=== PATIENT | female | born 1985 | race Asian ===

== ENCOUNTER 2019-03-15 03:11 | Inpatient (IN) | payer OTHER ==
[~2019-03-15] VITALS: Ht 157.5 cm; Wt 67.1 kg
[2019-03-15 03:18] VITALS: Ht 157.5 cm; Wt 67.1 kg
--- NOTE | 2019-03-15 03:32 | NUR ---
PT PRESENTED TO ED FOR INTERMITTENT "MY HEART BEATING REALLY FAST", INTERMITTENT DIZZINESS, INTERMITTENT SHAKINESS, AND INTERMITTENT ANXIETY X 4 DAYS. 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 PT STATES THEY HAS A 4 DAYS AGO AND RECIEVED 2 UNITS OF BLOOD. PER PT SO "IT WAS LOW BEFORE SHE WENT IN AND WHEN SHE BLEED DURING IT MADE IT WORSE". PT STATES VAGINAL BLEEDING WITH "CLOTS" SINCE AND STATES SHE GOES THROUGH APPROX "4" PADS A DAY. WOUND APPEARS CLOSED WITH STERISTRIPS IN PLACE , PT DENIES DRAINAGE FROM AREA. PT APPEARS PAEL BUT SKIN WARM TO TOUCH. PT A&0X4, SPEAKING FULL CLEAR SENTENCES, BREATHING EVEN AND UNLABORED. LUNGS CLEAR TO ASCULTATION. SO AT BEDSIDE. PT DENIES CP OR SOB. WILL CONTINUE TO MONITOR.
--- NOTE | 2019-03-15 03:55 | NUR ---
MSE COMPLETED BY MD GREENFIELD
--- NOTE | 2019-03-15 03:55 | NUR ---
IV FLUIDS RUNNING AT ORDERED RATE.
[2019-03-15 04:02] LABS: BASOPHIL % 0.3 % (0-2); PLATELET COUNT 326 x10^3mcL (130-400)
[2019-03-15 04:04] LABS: RED CELL DISTRIBUTION WIDTH 19.6 % (11.5-14.5)
[2019-03-15 04:13] LABS: CALCIUM 7.8 mg/dL (8.5-10.1); CARBON DIOXIDE 25.3 mmol/L (21-32); CHLORIDE SERUM 106 mmol/L (98-107); CREATININE SERUM 0.6 mg/dL (0.6-1.0); GFR1 > 60 mL/min; GLUCOSE SERUM 103 mg/dL (74-106); POTASSIUM SERUM 4.1 mmol/L (3.5-5.1); SODIUM SERUM 140 mmol/L (136-145)
--- NOTE | 2019-03-15 04:24 | NUR ---
CALLED TO PTS ROOM FOR IV PUMP BEEPING. IV INTACT AND FLOWS WITH NO COMPLICATIONS. IV PUMP RESTARTED. IV FLUIDS RUNNING WITH NO COMPLICATIONS. NO S/S INFLITRATION. WILL CONTINUE TO MONITOR.
[2019-03-15 04:30] LABS: ALKALINE PHOSPHATASE 136 U/L (46-116); ALT/SGPT 21 U/L (14-59); AST/SGOT 21 U/L (15-37); BILIRUBIN TOTAL 0.3 mg/dL (0.20-1.00); MAGNESIUM 1.9 mg/dL (1.8-2.4); TOTAL PROTEIN, SERUM 6.7 g/dL (6.4-8.2); URIC ACID 2.8 mg/dL (2.6-6.0)
[2019-03-15 04:32] LABS: ALBUMIN 2.4 g/dL (3.4-5.0)
--- NOTE | 2019-03-15 05:12 | NUR ---
PT TAKEN TO RESTROOM VIA WHEELCHAIR TO PROVIDE URINE SAMPLE. PT ASSISTED BACK TO BED WITH NO INCIDENCES NOTED. CM AND [address] PT A&0X4, SPEAKING FULL CLEAR SENTENCES. BREATHING EVEN AND UNLABORED. FAMILY AT BEDSIDE. WILL CONTINUE TO MONITOR.
[2019-03-15 05:30] LABS: UA SPECIFIC GRAVITY <=1.005 (1.005-1.035); microscopic required? YES; urine erythrocyte 3+ (NEGATIVE)
--- NOTE | 2019-03-15 06:18 | NUR ---
HEARD PT SCREAMING FROM ROOM. UPON ENTERING ROOM PT STATING "I DONT KNOW WHAT IS GOING ON!" WHILE KICKING/SHAKING BLE UP AND DOWN AND LUE BACK AND FORTH. MD GREENFIELD AT BEDSIDE FOR RE-EVALUATION. PER MD GIVE 1 MG ATIVAN IVP AT THIS TO ASSIST PT TO RELAX FOR CT SCAN. CM AND [address] PT AWAKE AND ALERT, ABLE TO ANSWER QUESTIONS APPROPRIATELY. BREATHING EVEN AND UNLABORED. AT BEDSIDE, WILL CONTINUE TO MONITOR.
[2019-03-15] MEDS ORDERED: NATURAL IRON65 MG PO (06:37)
[2019-03-15] MEDS ORDERED: MOT600 PO (06:38)
[2019-03-15] MEDS ORDERED: NORCO1 TA2 PO ×2 (06:38→06:40)
[2019-03-15] MEDS ORDERED: COLACE100 MG PO (06:38)
[2019-03-15] MEDS ORDERED: NIFEDIPINE10 M1 PO (06:39)
[2019-03-15] MEDS ORDERED: KEFLEX500 M1 PO (06:39)
--- NOTE | 2019-03-15 07:02 | NUR ---
PT TO CT VIA SEAN ACCOMPANIED BY CONSTRUCTION CHECKER AND
--- NOTE | 2019-03-15 07:13 | NUR ---
REPORT GIVEN TO SARATH DAVIS. PT STILL OFF UNIT IN CT. SARATH TO ASSUME CARE OF PT AT THIS TIME.
--- NOTE | 2019-03-15 07:24 | NUR ---
REPORT RECEIVED FROM CHRIST DAVIS TO ASSUME CARE OF PT. PT IN POSITION OF COMFORT, WITH VISIBLE CHEST RISE AND FALL. PT STS THAT SHE IS FEELING A LOT BETTER AND THAT SHE FEELS THAT SHE IS GETTING REST AWAY FROM THE BABY. PT IS ALERT AND ORIENTED, SPEAKING IN CLEAR AND FULL SENTENCES. PTS SKINS ARE PALE, WARM AND DRY. PER PT STS THAT THIS IS NOT HER NORMAL COLOR AND SHE RECEIVED [address] STONER MADE AWARE. VSS. RESP E/U. PT HAS NOTED DRY LIPS, PT REQUESTING WATER, DR. STONER APPROVED. WILL CONTNIUE TO MONITOR. PER XRAY CT IS OG, DR. STONER MADE AWARE.
--- NOTE | 2019-03-15 08:00 | NUR ---
PT HAD THREE EPISODES OF "SHAKING" AND MAKING NOISES. PT STS THAT SHE JUST FEELS THE URGE TO YELL AND MOVE HER LEGS. PT STS THAT SHE HAS NO LOC WHEN SHE HAS THESE "EPISODES". PT STS THAT SHE HAS ANXIETY AND SHE FEELS SHE JUST NEEDS TO MOVE. PT STS THAT SHE HAS NEVER HAD SEIZURES BEFORE. PT STS THAT SHE HAS THESE EPISODES MOST AT NIGHT APPORX 3-4X. STS THAT SHE HAS NEVER SOME THIS BEFORE. VSS. RESP E/U. PT STS THAT SHE DOES NOT GET DIZZY/NUMB, BUT SHE JUST FEELS THE NEED TO MOVE. UPON AUSCULTATION PT HAS CLEAR XU LUNG SOUNDS.
--- NOTE | 2019-03-15 08:40 | NUR ---
PT HAD ANOTHER "SHAKING" EPISODE, PT MOVING XU LEGS UP AND DOWN, CHIN TO CHEST MAKING NOISES. PT ABLE TO ANSWER QUESTIONS DURING THESE "SHAKING EPISODES". PT STS SHE HAS NO PAIN AND ID FULLY ALERT. VSS. RESP E/U. DR. STONER MADE AWARE.
--- NOTE | 2019-03-15 10:14 | NUR ---
PT PUMPIN BREAST MILK PRIOR TO CT SCAN DUE TO PT BEING INFORMED SHE CANNOT BREASTFEED FOR [address] STONER MADE PT AWARE OF RISKS. PT HAS NO HAD ANOTHER "SHAKING" EPISODE. PT STS THAT SHE IS FEELING BETTER. VSS. RESP E/U. WILL CONTINUE TO MONITOR.
--- NOTE | 2019-03-15 10:30 | NUR ---
PT REQUESTING TO LEAVE AND "COME BACK IN A FEW HOURS". DR. STONER MADE AWARE AND AT BEDSIDE.
--- NOTE | 2019-03-15 10:32 | NUR ---
PT AGREED TO STAY AND DO CT SCAN. DR. STONER MADE AWARE.
--- NOTE | 2019-03-15 10:53 | NUR ---
PT RETURNED FROM CT WITH NO COMPLICATIONS.
--- NOTE | 2019-03-15 11:47 | NUR ---
PT IN POSITION OF COMFORT, VISISBLE CHEST RISE AND FALL. VSS. RESP E/U. WILL CONTINUE TO MONITOR.
--- NOTE | 2019-03-15 12:00 | NUR ---
OB DOCTORS: SANCHEZ MARIE [phone]
--- NOTE | 2019-03-15 12:20 | NUR ---
DR. STONER AT BEDSIDE FOR CT RESULTING.
--- NOTE | 2019-03-15 13:00 | NUR ---
PT SITTING IN UPRIGHT POSITION EATING FOOD THAT HER BROUGHT HER. VSS. RESP E/U. NO DISTRESS NOTED. NO "SHAKING" EPISODES NOTED. WILL CONTINUE TO MONITOR.
--- NOTE | 2019-03-15 14:59 | NUR ---
RESIDENT AT BEDSIDE FOR MSE.
--- NOTE | 2019-03-15 15:01 | NUR ---
LAB AT BEDSIDE.
--- NOTE | 2019-03-15 15:01 | NUR ---
RECEIVED REPORT FROM SARATH DAVIS IN ED. AWAITING PATIENT ARRIVAL TO FLOOR.
--- NOTE | 2019-03-15 15:07 | NUR ---
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 WILL RE CONTACT IN 5 MIN.
--- NOTE | 2019-03-15 15:19 | NUR ---
REPORT GIVEN TO GEORGE DAVIS TO ASSUME CARE OF PT.
[2019-03-15 15:58] VITALS: BP 105/56
[2019-03-15 16:04] LABS: FREE T4 1.22 ng/dL (0.76-1.46); FREE THYROXINE INDEX 3.6 ug/dL (1.4-4.5); T4(THYROXINE) 12.5 ug/dL (4.7-13.3)
[2019-03-15 16:05] LABS: T3 TOTAL 1.58 ng/mL
--- NOTE | 2019-03-15 16:15 | NUR ---
RECEIVED PT FROM ER, PT ADMIT FOR PALPITATION, PULPONARY CONGESTION. PT IS A/OX 4, VERAL RESPONSIVE. LUNG SOUND CLEAR BILATERAL,NO COUGH, NO SOB, PO2 95% IN ROOM AIR. PT IS ON TELE 26, ST, HR 105, DENY ANY CHEST PAIN OR DISCOMFORT, BOWEL SOUND PRESENT ALL 4 QUADRANTS, NO DISTENTION, NO TENDER. LOWER ABD S/P . DRESSING INTACT. NO BLEEDING,NO DRAINAGE. PEDAL PULSE PRESENT BOTH FEET, NO EDEMA, IV AT RIGHT AC, NO LEAKING, NO INFILTRAITON. ALL ADLS ASSIST, ALL NEED MET, CALL LIGHT IN REACH, WILL CONTINUE TO MONITOR.
--- NOTE | 2019-03-15 17:18 | NUR ---
DR ALBA NOTIFIED THAT PATIENT IS FEELING DIZZY AND FATIGUED SUDDENLY. DR ALBA IN TO SEE AND ASSESS PATIENT. ECHO ALSO AT BEDSIDE.
--- NOTE | 2019-03-15 17:19 | NUR ---
DR ALBA TO ASSESS ECHO RESULTS AND PLACE ORDERS ACCORDINGLY.
--- NOTE | 2019-03-15 18:23 | NUR ---
IN TO SEE PATIENT AND ADMINISTER FLU VACCINE. PATIENT REQUESTING TO SPEAK WITH DOCTOR ABOUT PLAN OF CARE. AFTERWARD VACCINE ADMINUISTRATION, PATIENT SUDDENLY BECAME HIGHLY EMOTIONAL AND BEGAN CRYING. WILL NOTIFY .
[2019-03-15 18:40] LABS: AMPHETAMINE QUAL UR NONE DETECTED (See below)
--- NOTE | 2019-03-15 19:27 | NUR ---
REPORT GIVEN TO SARAHI DAVIS. PATIENT IN NO DISTRESS AND ALL NEEDS ARE MET. ALL QUESTIONS AND CONCERNS ADDRESSED.
--- NOTE | 2019-03-15 19:30 | NUR ---
PT RECIEVED FROM DAY NURSE. PT SITTING AT SIDE OF BED AT THIS TIME. DENIES PAIN OR DISCOMFORT. A/O X4, DENIES PAIN TO PALPATION. TELE 26, NSR. DENIES CP, NV, DIZZINESS, AND PALPATATIONS. PALPABLE PULSES, NO EDEMA NOTED AT THIS TIME. BREATHING E/U ON RA. ABD SOUND AT ROUND, INCISION NOTED TO ABD. CDI. AMBULATORY AT BASELINE. IV TO RAC, CDI. BED AT LOWEST POSITION. CALL LIGHT WITHIN REACH. WILL CONTINUE TO MONITOR.
[2019-03-15 20:33] VITALS: BP 116/72
--- NOTE | 2019-03-16 | NUR ---
PT RESTING IN BED AT THIS TIME. DENIES PAIN OR DISCOMFORT. BREATHING E/U ON RA. NO SIGNS OF ACUTE DISTRESS AT THIS TIME. BED AT LOWEST POSITION. CALL LIGHT WITHIN REACH. WILL CONTINUE TO MONITOR.
[2019-03-16 04:52] VITALS: BP 131/72
--- NOTE | 2019-03-16 06:07 | NUR ---
PT RESTING IN BED AT THIS TIME. DENIES PAIN OR DISCOMFORT. BREATHIN E/U ON RA. ALL NEEDS AND CONCERNS ADDRESSED THIS SHIFT. BED AT LOWEST POSITION. CALL LIGHT WITHIN REACH. WILL ENDORSE TO DAY NURSE.
[2019-03-16 07:01] LABS: BASOPHIL % 0.2 % (0-2); PLATELET COUNT 304 x10^3mcL (130-400)
[2019-03-16 07:05] LABS: CALCIUM 7.8 mg/dL (8.5-10.1); CHLORIDE SERUM 108 mmol/L (98-107); CREATININE SERUM 0.6 mg/dL (0.6-1.0); GFR1 > 60 mL/min; GLUCOSE SERUM 87 mg/dL (74-106); MAGNESIUM 1.8 mg/dL (1.8-2.4); PHOSPHOROUS 4.1 mg/dL (2.5-4.9); POTASSIUM SERUM 3.2 mmol/L (3.5-5.1); SODIUM SERUM 143 mmol/L (136-145)
[2019-03-16 07:21] VITALS: BP 136/71
--- NOTE | 2019-03-16 07:40 | NUR ---
RECEIVED IN NO RESP. DISTRESS, AWAKE, ALERT AND ORIENTED. ALITTLE BIT ANXIOUS. NO SOB NOTED, NO C/O CHEST PAIN AT THIS TIME. NSR ON TELE WITH HR OF 66BPM. HL PATENT. CALL LIGHT WITHIN REACH. WILL CONTINUE WITH PLAN OF CARE.
[2019-03-16 07:47] LABS: RED CELL DISTRIBUTION WIDTH 19.3 % (11.5-14.5)
[2019-03-16 11:48] VITALS: BP 134/85
--- NOTE | 2019-03-16 13:43 | NUR ---
AMBULATING IN ROOM, NO DISTRESS NOTED. DENIES PAIN OR DISCOMFORT,
[2019-03-16] MEDS ORDERED: CEPHALEXIN500 MG PO (14:32)
--- NOTE | 2019-03-16 15:20 | NUR ---
PT DC'D HOME IN NO RESP. DISTRESS. AWAKE, ALERT AND ORIENTED. VS STABLE. NO C/O PAIN OR DISCOMFORT.PT PULLED OUT HL, SITE NOTED INTACT WITH NO REDNESS OR BLEEDING. DID NOT SEE ANGIO CATH, PT PUT IT IN SHARP CONTAINER. DC INSTRUCTIONS REVIEWED WITH PT AND FAMILY. RX TO PHARMACY AND PT AWARE. PERSONAL BELONGINGS TAKEN HOME.
== END 2019-03-16 15:17 | disposition home or self-care (01) | DRG 776 ==
LOC: ED 03:11 → DU 14:26
PROVIDERS: Emergency Medicine; ADMIT Family Medicine
DX: O86.20 Urinary tract infection following delivery, unspecified (principal); J90 Pleural effusion, not elsewhere classified; O90.81 Anemia of the puerperium; E87.6 Hypokalemia; O25.3 Malnutrition in the puerperium; O90.89 Other complications of the puerperium, not elsewhere classified; E83.51 Hypocalcemia
CPT/HCPCS: 36600; 83880; 84439; 90658; G0378; J0696; J1940; J2060; J7030; J7040; J7060; Q0092; Q9967

== ENCOUNTER 2019-04-04 12:17 | Emergency (ER) | payer OTHER ==
[~2019-04-04] VITALS: Ht 157.5 cm; Wt 62.6 kg
[~2019-04-04 12:17] MED LIST: CEPHALEXIN500 MG PO; COLACE100 MG PO; KEFLEX500 M1 PO; MOT600 PO; NATURAL IRON65 MG PO; NIFEDIPINE10 M1 PO; NORCO1 TA2 PO
[2019-04-04 12:24] VITALS: BP 126/76; Ht 157.5 cm; Wt 62.6 kg
== END 2019-04-04 12:55 | disposition home or self-care (01) ==
LOC: ED 12:17
DX: O99.89 Other specified diseases and conditions complicating pregnancy, childbirth and the puerperium (principal); K60.2 Anal fissure, unspecified; Z98.890 Other specified postprocedural states